=== PATIENT | female | born 1965 | race African-American/Black ===

== ENCOUNTER 2019-05-10 15:07 | Emergency (ER) | payer MEDICAID ==
[~2019-05-10] VITALS: Ht 175.3 cm; Wt 70.8 kg
[2019-05-10 15:13] VITALS: Ht 175.3 cm; Wt 70.8 kg
[2019-05-10 19:01] VITALS: BP 141/85
== END 2019-05-10 20:46 | disposition home or self-care (01) ==
LOC: ED 15:07
DX: J06.9 Acute upper respiratory infection, unspecified (principal); R51 Headache; F17.210 Nicotine dependence, cigarettes, uncomplicated; J45.909 Unspecified asthma, uncomplicated; I10 Essential (primary) hypertension; R10.84 Generalized abdominal pain; Z90.89 Acquired absence of other organs; Z98.890 Other specified postprocedural states
CPT/HCPCS: J1100; J1200; J2765; Q0092

== ENCOUNTER 2020-06-14 19:30 | Emergency (ER) | payer MEDICAID ==
[~2020-06-14] VITALS: Ht 177.8 cm; Wt 77.6 kg
[2020-06-14 19:35] VITALS: Ht 177.8 cm; Wt 77.6 kg
[2020-06-14 20:44] VITALS: BP 167/103
== END 2020-06-14 20:54 | disposition home or self-care (01) ==
LOC: ED 19:30
DX: M54.9 Dorsalgia, unspecified (principal); M54.2 Cervicalgia; G89.29 Other chronic pain; J45.909 Unspecified asthma, uncomplicated; I10 Essential (primary) hypertension
CPT/HCPCS: J2270; Q0162

== ENCOUNTER 2020-06-19 17:56 | Emergency (ER) | payer MEDICAID ==
[~2020-06-19] VITALS: Ht 177.8 cm; Wt 80.3 kg
[2020-06-19 18:23] VITALS: Ht 177.8 cm; Wt 80.3 kg
[2020-06-19 20:08] VITALS: BP 155/92
== END 2020-06-19 20:08 | disposition home or self-care (01) ==
LOC: ED 17:56
DX: G89.29 Other chronic pain (principal); M54.6 Pain in thoracic spine; J45.909 Unspecified asthma, uncomplicated; I10 Essential (primary) hypertension
CPT/HCPCS: J2270

== ENCOUNTER 2020-07-20 15:07 | Emergency (ER) | payer MEDICAID ==
[~2020-07-20] VITALS: Ht 177.8 cm; Wt 77.6 kg
[2020-07-20 15:31] VITALS: BP 162/100; Ht 177.8 cm; Wt 77.6 kg
== END 2020-07-20 16:22 | disposition left against medical advice (07) ==
LOC: ED 15:07
DX: Z53.21 Procedure and treatment not carried out due to patient leaving prior to being seen by health care provider (principal)